=== PATIENT | female | born 1980 | race African-American/Black ===

== ENCOUNTER 2018-08-26 10:06 | Inpatient (IN) | payer OTHER ==
[2018-08-26] MEDS ORDERED: LACTATED RINGERS 1,000 ML ONE (10:14)
[2018-08-26] MEDS ORDERED: PITOCin/NS 20 UNIT/1000ML DRIP 20,000 MILLIUNITS/1,000 ML BAG IV ONE ×2 (10:41)
[2018-08-26] MEDS ORDERED: ZOFRAN IV PRN ×2 (10:42→11:33)
[2018-08-26] MEDS ORDERED: BRETHINE IVP PRN (10:42)
[2018-08-26] MEDS ORDERED: STADOL IV PRN (10:42)
[2018-08-26] MEDS ORDERED: SUBLIMAZE IV PRN (10:42)
[2018-08-26] MEDS ORDERED: XYLOCAINE 2% INFILTRATI ONE (10:42)
[2018-08-26] MEDS ORDERED: BRETHINE SUB-Q PRN (10:42)
[2018-08-26] MEDS ORDERED: MINERAL OIL PO PRN (10:42)
[2018-08-26] MEDS ORDERED: PITOCin/NS 20 UNIT/1000ML DRIP 20 UNITS/1,000 ML BAG IV SCH (11:00)
[2018-08-26] MEDS ORDERED: LACTATED RINGERS 1,000 ML IV SCH (11:00)
--- NOTE | 2018-08-26 11:05 | History and Physical Report ---
History of Present Illness Date of examination: 08/26/18 Date of admission: 08/26/18 10:06 Chief complaint: Active labor History of present illness: 37 yo, at 38.5 wks gestation, pt of [facility] that initiated care at 14 wks gestation. She arrived to [facility] via ambulance from the clinic this morning in active labor with advanced dilitation and a bulging bag. Reports + FM, denies any vaginal bleeding. Her has been complicated by advanced maternal age and elevated 1 hr gtt with passed 3 hr gtt. She has a hx of macosomia. Labs: A+, Antibody negative; rubella immune; VDRL negative; HBsAg negative; HIV negative; Gc/Chlamydia negative; 1hr Gtt- 158; 3 hr Gtt- 87,105,183,136. GBS negative. Past History Past Medical History: no pertinent history Past Surgical History: D&C (2009) Family/Genetic History: none Social history: , lives with family, full code. denies: smoking, alcohol abuse, prescription drug abuse, IV drug use - Obstetrical History Expected Date of Delivery: 09/04/18 Actual Gestation: 38 Week(s) 5 Day(s) : 4 Para: 2 Hx # Term Pregnancies: 2 Number of Pregnancies: 0 Spontaneous Abortions: 1 Induced : 0 Number of Living Children: 2 #1 Infant Gender: Female year: 2,006 Birthweight: 9.2 kg Method of Delivery: Vaginal Gestational age at delivery: 40 Complications: none #2 year: 2,010 (SAB with D & C) #3 Infant Gender: Male year: 2,013 Method of Delivery: Vaginal Gestational age at delivery: 40 Complications: none Medications and Allergies Allergies Allergy/AdvReac Type Severity Reaction Status Date / Time No Known Allergies Allergy Unverified 08/26/18 10:24 Home Medications Medication Instructions Recorded Confirmed Last Taken Type Multivitamin Tablet 1 tab PO DAILY 08/26/18 08/26/18 08/11/18 10:00 History 1 Active Meds: Active Medications Butorphanol Tartrate (Stadol) 1 mg IV Q2H PRN PRN Reason: Pain, Moderate (4-6) Ephedrine Sulfate (Ephedrine Sulfate) 10 mg IV Q2M PRN PRN Reason: Hypotension Fentanyl (Sublimaze) 100 mcg IV Q2H PRN PRN Reason: Labor Pain Oxytocin/Sodium Chloride (Pitocin/Ns 20 Unit/1000ml Drip) 20 units in 1,000 mls @ 125 mls/hr IV DIRECT WM Lactated Ringer's (Lactated Ringers) 1,000 mls @ 125 mls/hr IV DIRECT WM Lidocaine (Xylocaine 2%) 20 ml INFILTRATI ONCE ONE Stop: 08/26/18 10:43 Mineral Oil (Mineral Oil) 30 ml PO QHS PRN PRN Reason: Constipation Ondansetron HCl (Zofran) 4 mg IV Q8H PRN PRN Reason: Nausea And Vomiting Terbutaline Sulfate (Brethine) 0.25 mg SUB-Q ONCE PRN PRN Reason: Hyperstimulation/Hypertonicity Terbutaline Sulfate (Brethine) 0.25 mg IVP ONCE PRN PRN Reason: Hyperstimulation/Hypertonicity Review of Systems All systems: negative Gastrointestinal: other (regular painful ctxs) - Vital Signs Vital signs: Vital Signs Temp Pulse Resp BP 97.6 F 57 L 18 128/80 08/26/18 10:38 08/26/18 10:38 08/26/18 10:38 08/26/18 10:38 Temp Pulse Resp BP Pulse Ox 97.6 F 57 L 18 128/80 08/26/18 10:38 08/26/18 10:38 08/26/18 10:38 08/26/18 10:38 - Physical Exam Breasts: Positive: deferred Cardiovascular: Regular rate Lungs: Positive: Normal air movement Abdomen: Positive: other (gravid) Genitourinary (Female): Positive: normal external genitalia Vagina: Positive: normal moisture Anus/Rectum: Positive: normal perianal skin Extremities: Positive: normal Deep Tendon Reflex Grade: Normal +2 - Obstetrical FHR: category 1 Uterine Contraction Monitor Mode: External Cervical Dilatation: 10 (with bulging bag) Cervical Effacement Percentage: 100 station: +1 Uterine Contraction Frequency (min): 2-3 Uterine Contraction Pattern: Regular Uterine Tone Measurement Phase: Resting Uterine Contraction Intensity: Strong/Firm Results All other labs normal. Assessment and Plan - Patient Problems (1) 38 weeks gestation of Current Visit: Yes Status: Acute (2) Active labor at term Current Visit: Yes Status: Acute Plan to address problem: Admit to L & D Routine labor orders Pain medication as desired Anticipate (3) Advanced maternal age (AMA) in Current Visit: Yes Status: Acute
[2018-08-26] MEDS ORDERED: PHENERGAN PO PRN (11:33)
[2018-08-26] MEDS ORDERED: BENADRYL PO PRN (11:33)
[2018-08-26] MEDS ORDERED: DULCOLAX PR PRN (11:33)
[2018-08-26] MEDS ORDERED: MILK OF MAGNESIA PO PRN (11:33)
[2018-08-26] MEDS ORDERED: PERCOCET 5/325 PO PRN (11:33)
[2018-08-26] MEDS ORDERED: TUCKS PAD TP PRN (11:33)
[2018-08-26] MEDS ORDERED: LANSINOH TP PRN (11:33)
[2018-08-26 11:37] LABS: Hematocrit 36.5 % (30.3-42.9); Mean Corpuscular HGB Conc 36 % (30-34); Mean Corpuscular Volume 87 fl (79-97); Platelet Count 188 K/mm3 (140-440); Red Blood Count 4.18 M/mm3 (3.65-5.03); Red Cell Distribution Width 13.4 % (13.2-15.2)
[2018-08-26] MEDS ORDERED: SODIUM CHLORIDE FLUSH SYRINGE 10 ML IV NR (12:00)
--- NOTE | 2018-08-26 12:10 | Procedure Note ---
OB Delivery Note - Delivery Date of Delivery: 08/26/18 (1114) Surgeon: TWIN BLUNT (CNM) Estimated blood loss: <100cc - Vaginal Delivery presentation: vertex Delivery position: OA (GRACE) Intrapartum events: none, precipitous labor- <3hr Delivery induction: none Delivery augmentation: rupture of membranes Delivery monitor: external FHT, external uterine Route of delivery: Delivery placenta: spontaneous (1120) Episiotomy: none Delivery laceration: none Anesthesia: none Delivery comments: of viable, crying female , placed directly to maternal abdomen. Cord double clamped and cut by FOB after cessation of pulsation. Placenta delivered spontaneously, ocampo, disposed per hospital policy. Fundus firm @ U, hemostasis maintained. Perineum intact. Mother and baby stable, safe and bonding well. - A at 1 minute: 8 at 5 minutes: 9 Infant Gender: Female (Weight: 3719 gms (8 lbs, 3 oz) 19.5 inches.)
[2018-08-26] MEDS: IBUPROFEN PO SCH (15:39)
[2018-08-26 23:46] LABS: Hematocrit 32.3 % (30.3-42.9); Hemoglobin 11.3 gm/dl (10.1-14.3)
[2018-08-27] MEDS: IBUPROFEN PO SCH ×3 (00:47→12:00)
[2018-08-27] MEDS ORDERED: DEPO-PROVERA (CONTRACEPTION) IM NR (11:01)
--- NOTE | 2018-08-27 11:01 | Progress Note ---
Assessment and Plan A: PP Day #1 Stable P: Follow Routine Orders D/C home today per patient request Depo Provera 150mg IM X 1 Dose prior to discharge RTO in 6 Weeks Subjective - Subjective Date of service: 08/27/18 Patient reports: appetite normal, voiding normally, pain well controlled, flatus, ambulating normally : doing well, bottle feeding Objective - Vital Signs Latest vital signs: Vital Signs Temp Pulse Resp BP BP Pulse Ox 08/27/18 07:56 98.4 F 57 L 18 104/56 98 08/27/18 01:40 97.7 F 18 90/46 08/27/18 01:30 98.6 F 18 107/46 08/27/18 00:47 20 08/27/18 00:45 98.6 F 55 L 18 107/46 96 08/26/18 22:55 98.5 F 18 108/50 08/26/18 20:45 98.5 F 58 L 18 108/50 97 08/26/18 16:15 98.2 F 58 L 18 112/60 98 08/26/18 13:45 61 18 118/58 97 08/26/18 12:56 63 121/67 08/26/18 12:42 62 108/71 08/26/18 12:27 64 114/69 08/26/18 12:11 57 L 123/87 08/26/18 12:03 58 L 117/74 08/26/18 11:27 61 140/70 Intake and Output 08/26/18 08/27/18 08/27/18 22:59 06:59 14:59 Intake Total 540 120 600 Output Total 1100 Balance -560 120 600 Intake: Oral 360 120 360 Intake, Free Water 180 240 Output: Urine 1100 Void 1100 Other: Total, Intake Amount 240 120 120 Total, Output Amount 400 # Voids Void 1 1 1 - Exam Breasts: Present: normal Cardiovascular: Present: Regular rate Lungs: Present: Clear to auscultation, Normal air movement Abdomen: Present: normal appearance, soft, normal bowel sounds Uterus: Present: normal, firm, fundal height below umbilicus Extremities: Present: normal - Labs Labs: Abnormal lab results 08/26/18 Range/Units 10:49 MCHC 36 H (30-34) %
--- NOTE | 2018-08-27 11:03 | Discharge Summary ---
Providers - Providers Date of Admission: 08/26/18 10:06 Date of discharge: 08/27/18 Attending physician: JASON OJEDA Primary care physician: JASON OJEDA Hospitalization Reason for admission: active labor Delivery: Episiotomy: none Laceration: none Other procedures: none complications: none Discharge diagnosis: IUP at term delivered baby: female Condition at discharge: Good Disposition: DC-01 TO HOME OR SELFCARE Plan - Provider Discharge Summary Activity: routine, no sex for 6 weeks, no heavy lifting 4 weeks, no strenuous exercise Diet: routine Instructions: routine Additional instructions: [] Smoking cessation referral if applicable(refer to patient education folder for contact #) [] Refer to [facility]'s [facility] [address] [facility] Booklet Call your doctor immediately for: * Fever > 100.5 * Heavy vaginal bleeding ( >1 pad per hour) * Severe persistent headache * Shortness of breath * Reddened, hot, painful area to leg or breast * Drainage or odor from incision. * Keep incision clean and dry at all times and follow doctor's instructions regarding bathing/showering - Follow up plan Follow up: JASON OJEDA MD [Primary Care Provider] - 6 Weeks
[2018-08-27 17:49] VITALS: BP 108/59
== END 2018-08-27 16:00 | disposition home or self-care (01) | DRG 807 ==
LOC: LD 10:06 → OB 13:51
PROVIDERS: ADMIT Obstetrics & Gynecology; ATTEND Obstetrics & Gynecology
PROC: 10E0XZZ Delivery of Products of Conception, External Approach (ICD-10-PCS; principal; 2018-08-26)
DX: O62.3 Precipitate labor (principal); Z37.0 Single live birth; Z3A.38 38 weeks gestation of pregnancy
CPT/HCPCS: 36415; 85014; 85018; 85027; 86592; 86850; 86900; 86901; G0378; J2590; J7120

== ENCOUNTER 2020-08-23 20:44 | Outpatient (CLI) | payer SELFPAY ==
[2020-08-23 21:03] VITALS: BP 121/60
--- NOTE | 2020-08-23 22:24 | Ultrasound Report ---
US OB BPP wo non-stress, US OB limited INDICATION / CLINICAL INFORMATION: boarderline THADDEUS OF 6.54. COMPARISON: None available. FINDINGS: BREATHING MOVEMENT = 2 GROSS BODY MOVEMENT = 2 TONE = 2 QUALITATIVE AMNIOTIC FLUID VOLUME = 2 TOTAL BIOPHYSICAL SCORE = 8/8 AMNIOTIC FLUID INDEX (cm) = 6.6 (normal is 7-24) PRESENTATION: Cephalic. HEART RATE (beats per minute): 138-158 IMPRESSION: 1. biophysical profile = 8/8 2. Borderline diminished THADDEUS measuring 6.6 cm. Signer Name: Poncho Richard MD Signed: 08/23/2020 10:20 PM Workstation Name: [id number]
== END 2020-08-23 22:25 | disposition home or self-care (01) ==
LOC: TRG 20:44 → APU 20:45 → TRG 22:25
PROVIDERS: ATTEND Obstetrics & Gynecology
DX: O09.893 Supervision of other high risk pregnancies, third trimester (principal); Z3A.34 34 weeks gestation of pregnancy
CPT/HCPCS: 59025; 76815; 76819

== ENCOUNTER 2020-09-15 21:00 | Inpatient (IN) | payer OTHER ==
[2020-09-15] MEDS ORDERED: LOPERAMIDE 2 MG CAP PO PRN (22:38)
[2020-09-15] MEDS ORDERED: CARBOPROST TROMETHAMINE 250 MCG/1 ML INJ IM PRN (22:38)
[2020-09-15] MEDS ORDERED: fentaNYL 100 MCG/2 ML INJ IV PRN (22:38)
[2020-09-15] MEDS ORDERED: BUTORPHANOL 2 MG/1 ML INJ IV PRN ×2 (22:38)
[2020-09-15] MEDS ORDERED: OXYTOCIN 10 UNIT/1 ML INJ IM PRN (22:38)
[2020-09-15] MEDS ORDERED: TERBUTALINE 1 MG/1 ML INJ SUB-Q PRN (22:38)
[2020-09-15] MEDS ORDERED: MINERAL OIL 30 ML ORAL LIQD PO PRN (22:38)
[2020-09-15] MEDS ORDERED: DINOPROSTONE 10 MG VAG SUPP VG ONE (22:38)
[2020-09-15] MEDS ORDERED: LIDOCAINE (2%) 20 MG/1 ML VIAL 20 ML MDV INFILTRATI ONE (22:38)
[2020-09-15] MEDS ORDERED: ePHEDrine SULFATE 50 MG/1 ML INJ IV PRN (22:38)
[2020-09-15] MEDS ORDERED: METHYLERGONOVINE MALEATE 0.2 MG/ML VIAL IM PRN (22:38)
[2020-09-15] MEDS ORDERED: miSOPROStol 200 MCG TAB PR PRN (22:38)
[2020-09-15] MEDS ORDERED: LACTATED RINGERS 1,000 ML IV SCH (22:45)
[2020-09-15] MEDS ORDERED: OXYTOCIN DRIP 30 UNITS/500 ML BAG IV SCH ×2 (23:00)
[2020-09-15 23:14] LABS: Hematocrit 36.5 % (30.3-42.9); Hemoglobin 12.8 gm/dl (10.1-14.3); Mean Corpuscular HGB Conc 35 % (30-34); Mean Corpuscular Volume 91 fl (79-97); Platelet Count 193 K/mm3 (140-440); Red Blood Count 3.99 M/mm3 (3.65-5.03); Red Cell Distribution Width 13.4 % (13.2-15.2)
--- NOTE | 2020-09-16 03:44 | History and Physical Report ---
History of Present Illness Date of examination: 09/16/20 Date of admission: 09/15/20 21:08 Chief complaint: "My doctor sent me here to be induced" History of present illness: 39 y/o presented to [facility] @ 39.1 wks for an IOL r/t AMA and Pre GDM. Pt initiated her pnc @ [facility] @ 11.3 wks. Her bs were managed with Metformin. She has a hx of macrosomia with a previous FW of 9.2 lbs. AC 95% with this preg, cervical polyp, and ASCUS + HPV. 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 Her GBS is neg. Pt was admitted to L&D for delivery. 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: abnormal PAP smear, other (cervical polyp) Family/Genetic History: none Social history: no significant social history, single, full code - Obstetrical History Expected Date of Delivery: 09/22/20 Actual Gestation: 39 Week(s) 1 Day(s) : 5 Para: 3 Hx # Term Pregnancies: 3 Spontaneous Abortions: 1 Number of Living Children: 3 Medications and Allergies Allergies Allergy/AdvReac Type Severity Reaction Status Date / Time No Known Allergies Allergy Unverified 08/26/18 10:24 Home Medications Medication Instructions Recorded Confirmed Last Taken Type Multivitamin Tablet 1 tab PO DAILY 08/26/18 09/15/20 08/11/18 10:00 History 1 Active Meds: Active Medications Butorphanol Tartrate (Butorphanol 2 Mg/1 Ml Inj) 1 mg IV Q2H PRN PRN Reason: Pain, Moderate(4-6) LABOR PAIN Butorphanol Tartrate (Butorphanol 2 Mg/1 Ml Inj) 2 mg IV Q2H PRN PRN Reason: Pain , Severe (7-10) Carboprost Tromethamine (Carboprost Tromethamine 250 Mcg/1 Ml Inj) 250 mcg IM ONCE PRN PRN Reason: Uterine Bleeding Ephedrine Sulfate (Ephedrine Sulfate 50 Mg/1 Ml Inj) 10 mg IV Q2M PRN PRN Reason: Hypotension Fentanyl (Fentanyl 100 Mcg/2 Ml Inj) 100 mcg IV Q2H PRN PRN Reason: Pain,Severe (7-10) LABOR PAIN Oxytocin/Sodium Chloride (Pitocin/Ns 30 Unit/500ml) 30 units in 500 mls @ 2 mls/hr IV TITR WM; Protocol Last Titration: 09/16/20 02:19 Dose: 6 ml/hr, 6 mls/hr Documented by: Lactated Ringer's (Lactated Ringers) 1,000 mls @ 125 mls/hr IV DIRECT WM Last Admin: 09/15/20 23:48 Dose: 125 mls/hr Documented by: Oxytocin/Sodium Chloride (Pitocin/Ns 30 Unit/500ml) 30 units in 500 mls @ 40 mls/hr IV TITR WM; Protocol Loperamide HCl (Loperamide 2 Mg Cap) 2 mg PO ONCE PRN PRN Reason: give with Hemabate Methylergonovine Maleate (Methylergonovine Maleate 0.2 Mg/Ml Vial) 0.2 mg IM ONCE PRN PRN Reason: Uterine Bleeding Mineral Oil (Mineral Oil 30 Ml Oral Liqd) 30 ml PO QHS PRN PRN Reason: Constipation Misoprostol (Misoprostol 200 Mcg Tab) 800 mcg VT ONCE PRN PRN Reason: Uterine Bleeding Oxytocin (Oxytocin 10 Unit/1 Ml Inj) 10 unit IM ONCE PRN PRN Reason: Uterine Bleeding Terbutaline Sulfate (Terbutaline 1 Mg/1 Ml Inj) 0.25 mg SUB-Q ONCE PRN PRN Reason: Hyperstimulation/Hypertonicity Review of Systems All systems: negative Eyes: deferred Ears, nose, mouth and throat: deferred Breasts: normal Genitourinary: normal appearance Rectal Exam: normal exam-external/orifice - Vital Signs Vital signs: Vital Signs Temp Pulse Resp BP 98.2 F 64 16 119/68 09/15/20 22:32 09/15/20 22:32 09/15/20 22:32 09/15/20 22:32 Temp Pulse Resp BP Pulse Ox 98.7 F 60 15 122/68 09/16/20 02:21 09/16/20 02:35 09/16/20 02:21 09/16/20 02:35 - Physical Exam Breasts: Positive: normal Abdomen: Positive: normal appearance, soft, normal bowel sounds, other (gravid) Genitourinary (Female): Positive: normal external genitalia, normal perenium Vulva: both: normal Vagina: Positive: normal moisture Uterus: Positive: enlarged, normal contour, other (enlarged) Adnexa: both: normal Anus/Rectum: Positive: normal perianal skin Extremities: Positive: normal - Obstetrical FHR: auscultation normal, category 1 Uterine Contraction Monitor Mode: External Cervical Dilatation: 3 (per nurse) Cervical Effacement Percentage: 40 station: -4 Uterine Contraction Pattern: Irregular Uterine Tone Measurement Phase: Resting Uterine Contraction Intensity: Mild Results Result Diagrams: 09/15/20 22:54 Abnormal lab results 09/15/20 09/16/20 Range/Units 22:54 02:47 MCHC 35 H (30-34) % POC Glucose 111 H (70-105) mg/dL All other labs normal. Assessment and Plan A: IUP@ 39.1 wks AMA Pre GDM (managed with Metformin) Cervical polyp Hx Macrosomia P: Admit to L&D Continuous monitoring Pain med/Epidural prn Start Pitocin per protocal Notify NICU FSBS q4 hr Anticipate Consulted Dr Xavier - Patient Problems (1) Pregestational diabetes mellitus, modified White class B Current Visit: Yes Status: Acute
[2020-09-16] MEDS ORDERED: ONDANSETRON 4 MG/2 ML INJ IV PRN ×2 (08:52→09:00)
[2020-09-16] MEDS ORDERED: LANOLIN/ZINC/DIMETHICONE (LANSINOH) 7 GM TP PRN ×2 (08:52→09:00)
[2020-09-16] MEDS ORDERED: PROMETHAZINE 25 MG RECT SUPP PR PRN ×2 (08:52→09:00)
[2020-09-16] MEDS ORDERED: PROMETHAZINE 25 MG TAB PO PRN ×2 (08:52→09:00)
[2020-09-16] MEDS ORDERED: MAGNESIUM HYDROXIDE (MOM) ORAL LIQD UDC PO PRN ×2 (08:52→22:00)
[2020-09-16] MEDS ORDERED: IBUPROFEN 600 MG TAB PO SCH (09:00)
--- NOTE | 2020-09-16 09:00 | Procedure Note ---
Date of procedure: 09/16/20 Pre-op diagnosis: 38 wk iup,BEST DM, LABOR,LGA,AMA Post-op diagnosis: same Procedure: . LIVE BORN MALE BORN AT 8:38 AM. WGT 9'3', 8,9.blood loss 300 ccs. no tears. rectal mucosa intact. Anesthesia: none Surgeon: JOSEPH MORAN Estimated blood loss: other (300) Pathology: none Specimen disposition: discarded Condition: stable Disposition: floor
[2020-09-16] MEDS ORDERED: diphenhydrAMINE 25 MG CAP PO PRN ×2 (09:30→10:00)
[2020-09-16] MEDS ORDERED: oxyCODONE /ACETAMINOPHEN 5-325MG TAB PO PRN (10:00)
[2020-09-16] MEDS ORDERED: WITCH HAZEL/ GLYCERIN PAD TP PRN ×2 (10:00)
[2020-09-16] MEDS: IBUPROFEN 600 MG TAB PO SCH (16:20)
[2020-09-16 21:03] LABS: Hematocrit 36.2 % (30.3-42.9); Hemoglobin 12.8 gm/dl (10.1-14.3)
--- NOTE | 2020-09-17 11:15 | Progress Note ---
Assessment and Plan nl pp exam.d/c in 1 day. Subjective - Subjective Date of service: 09/17/20 Principal diagnosis: pp 1 Patient reports: appetite normal, voiding normally, pain well controlled, ambulating normally : doing well Objective - Vital Signs Latest vital signs: Vital Signs Temp Pulse Resp BP BP Pulse Ox 09/17/20 08:02 97.9 F 57 L 20 111/57 99 09/17/20 00:05 98.2 F 62 18 101/62 100 09/16/20 16:20 18 09/16/20 16:16 98.1 F 58 L 20 108/57 98 Intake and Output 09/16/20 09/17/20 09/17/20 23:59 07:59 15:59 Intake Total 120 240 240 Output Total 500 300 Balance -380 -60 240 Intake: Oral 120 240 240 Output: Urine 500 300 Void 500 300 Other: Total, Intake Amount 120 240 240 Total, Output Amount 500 300 # Voids Void 1 1 1 - Exam Abdomen: Present: normal appearance, soft Vulva: both: normal Uterus: Present: normal, firm Extremities: Present: normal Incision: Present: normal, dry, intact
[2020-09-18] MEDS: IBUPROFEN 600 MG TAB PO SCH (03:00)
[2020-09-18 08:14] VITALS: BP 103/63
--- NOTE | 2020-09-18 15:06 | Progress Note ---
Assessment and Plan A: day 2 S/P . P: Discharge patient home today. Discussed with patient discharge instructions and warning signs. Advised patient to avoid lifting, intercourse, driving, and housework. Advised patient to continue taking her vitamins at home. Advised patient to follow up at [facility] clinic in 6 weeks. Patient voiced understanding of all instructions. Subjective - Subjective Date of service: 09/18/20 Principal diagnosis: pp 2 Interval history: Patient desires discharge home today. Patient reports: appetite normal, voiding normally, pain well controlled, flatus, ambulating normally, no dizzy ambulation, no nauseated [place]: doing well Objective - Vital Signs Latest vital signs: Vital Signs Temp Pulse Resp Resp BP BP Pulse Ox 09/18/20 08:00 98.4 F 61 18 103/63 99 09/18/20 00:00 98.0 F 61 20 121/61 98 09/17/20 21:31 18 09/17/20 21:19 18 09/17/20 15:52 98.0 F 61 20 118/61 97 Intake and Output 09/17/20 09/18/20 09/18/20 23:59 07:59 15:59 Intake Total 360 Balance 360 Intake: Oral 360 Other: Total, Intake Amount 120 Voiding Method Toilet # Voids Void 1 - Exam Cardiovascular: Present: Regular rate Lungs: Present: Clear to auscultation Abdomen: Present: normal appearance, soft. Absent: distention, tenderness, guarding, rigidity Uterus: Present: normal, firm, fundal height below umbilicus. Absent: bogginess, tenderness Extremities: Present: normal. Absent: tenderness, edema
--- NOTE | 2020-09-18 15:09 | Discharge Summary ---
Providers - Providers Date of Admission: 09/15/20 21:08 Date of discharge: 09/18/20 Attending physician: JOSEPH MORAN MD Primary care physician: JOSEPH MORAN MD Hospitalization Reason for admission: induction of labor Delivery: Laceration: none Other procedures: none complications: none Discharge diagnosis: IUP at term delivered [place] baby: male Pertinent studies: Labs Hospital course: Stable hospital course Condition at discharge: Good Disposition: DC-01 TO HOME OR SELFCARE - Discharge Diagnoses (1) Term delivered Status: Acute Plan - Provider Discharge Summary Activity: routine, no sex for 6 weeks, no heavy lifting 4 weeks, no strenuous exercise Diet: routine Instructions: routine Additional instructions: Continue taking your vitamin daily at home. Follow up at [place] [facility] clinic in 6 weeks. Call your doctor immediately for: * Fever > 100.5 * Heavy vaginal bleeding ( >1 pad per hour) * Severe persistent headache * Shortness of breath * Reddened, hot, painful area to leg or breast - Follow up plan Follow up: JOSEPH MORAN MD [Primary Care Provider] - 6 Weeks Forms: [facility] Discharge Summary, Discharge Signature Page
== END 2020-09-18 16:25 | disposition home or self-care (01) | DRG 807 ==
LOC: TRG 21:00 → APU 21:03 → TRG 21:07 → LD 21:08 → OB 09-16 10:57
PROC: 10E0XZZ Delivery of Products of Conception, External Approach (ICD-10-PCS; principal; 2020-09-16)
DX: O99.892 Other specified diseases and conditions complicating childbirth (principal); Z37.0 Single live birth; R73.03 Prediabetes; Z20.822 Contact with and (suspected) exposure to COVID-19; Z3A.39 39 weeks gestation of pregnancy; O09.523 Supervision of elderly multigravida, third trimester; Z87.19 Personal history of other diseases of the digestive system
CPT/HCPCS: 36415; 82962; 85014; 85018; 85027; 86850; 86900; 86901; G0378; J2590; J7120; U0003